=== PATIENT | male | born 1975 | race Caucasian/White ===

== ENCOUNTER 2017-07-09 08:48 | Emergency (ER) | payer OTHER ==
--- NOTE | 2017-07-09 09:48 | EDPHY ---
H & P Time Seen by Provider: 07/09/17 08:56 HPI/ROS: CHIEF COMPLAINT: Tailbone pain and finger laceration after fall History by patient HISTORY OF PRESENT ILLNESS: 41-year-old man presents complaining of laceration to left small finger after grabbing onto a ladder when he was slipping off. He fell and landed on his tailbone he complains of pain in his tailbone however he is able to sit without too much discomfort. He denies any distal numbness or tingling. He denies hitting her head or other injury. His last tetanus shot is unknown. REVIEW OF SYSTEMS: As in HPI, and all other systems reviewed and are negative Physical Exam: General Appearance: Alert and no distress. Eyes: Pupils equal and round no injection. Musculoskeletal: Neck is supple and nontender. Extremities: Left hand with 2 cm laceration over proximal palmar side of small finger just above MCP joint. Finger has full range of motion in flexion and extension against resistance. Distal sensation is intact, distal cap refills less than 2 seconds. Back: No bony tenderness, no coccygeal tenderness, no buttock tenderness Neuro: Normal gait, strength is 5/5 and equal bilaterally lower extremities.. Skin: No rashes or lesions except as described above. MDM/Departure - MDM Procedures: Procedure: Laceration repair. Verbal consent was obtained from the patient. The 2 cm laceration on the left small finger was anesthetized in the usual fashion with a finger block with 0.25 % Marcaine. The wound was irrigated, draped and explored to its base. There were no deep structures involved. No tendon injury was identified. The wound was repaired with 3 x 5 0 nylon interrupted sutures. There is a small 3 mm skin flap that was too thin to suture but will be left in place as an organic dressing but may be nonviable. This was discussed with the patient. The wound repair was uncomplicated. The procedure was performed by myself. ED Course/Re-evaluation: [age] old man presents with coccyx contusion but no evidence of fracture or neurological compromise. He also has a laceration of his left finger which was repaired without complication. Patient was given a tetanus prophylaxis in the ED. We discussed home care and return precautions. - Depart Disposition: Home, Routine, Self-Care Clinical Impression: Laceration of finger Qualifiers: Encounter type: initial encounter Finger: little finger Damage to nail status: without damage Foreign body presence: without foreign body Laterality: left Qualified Code(s): S61.217A - Laceration without foreign body of left little finger without damage to nail, initial encounter Contusion of coccyx Qualifiers: Encounter type: initial encounter Qualified Code(s): S30.0XXA - Contusion of lower back and pelvis, initial encounter Condition: Good Instructions: Care For Your Stitches (ED) Additional Instructions: You were seen by Dr. Dede Rice today. Please have your stitches removed in approximately 10 days. Keep the dressing on for the next 24 hours then you may remove it and cover the wound with Aquaphor or antibiotic ointment and a dressing. You may shower and you should wash her hands with soap and water but do not swim or soak your hand. Watch for signs and symptoms of infection including but not limited to pus from the wound, increased redness or pain, or fever. You may use a donut pillow a you have persistent tailbone pain. He may take ibuprofen or Tylenol for pain. Return for any worsening or new concerns. Referrals: NONE *PRIMARY CARE P,. [Primary Care Provider] - As per Instructions
[2017-07-09] MEDS ORDERED: TDAP ADULT 0.5 ML INJ (BOOSTRIX) IM ONE (10:45)
[2017-07-09 11:18] VITALS: BP 122/92; RESP 14; TEMP 98.2
[2017-07-09 11:21] VITALS: PULSE 75; O2SAT 96
== END 2017-07-09 11:21 | disposition home or self-care (01) ==
LOC: CED 08:48
PROC: 0HQGXZZ Repair Left Hand Skin, External Approach (ICD-10-PCS; principal; 2017-07-09)
DX: S61.217A Laceration without foreign body of left little finger without damage to nail, initial encounter (principal); S30.0XXA Contusion of lower back and pelvis, initial encounter; W01.0XXA Fall on same level from slipping, tripping and stumbling without subsequent striking against object, initial encounter; Z23 Encounter for immunization